=== PATIENT | male | born 1965 | race Caucasian/White ===

== ENCOUNTER 2017-04-27 23:16 | Emergency (ER) | payer MEDICARE ==
[2017-04-28] MEDS ORDERED: METOCLOPRAMIDE 5 MG/ML 2 ML VIAL IVP STA (00:24)
[2017-04-28] MEDS ORDERED: SODIUM CHLORIDE 0.9% 1,000 ML IV STA (00:24)
[2017-04-28] MEDS ORDERED: diphenhydrAMINE 50 MG/ML 1 ML VIAL IVP STA (00:24)
[2017-04-28] MEDS ORDERED: KETOROLAC 30 MG/ML 1 ML VIAL IVP STA (00:24)
[2017-04-28] MEDS ORDERED: ACETAMINOPHEN TAB 500 MG TAB PO STA (00:24)
--- NOTE | 2017-04-28 00:42 | ED ---
Headache HPI - General Chief Complaint: Headache Stated Complaint: Headache x 3 Time Seen by Provider: 04/27/17 23:59 Source: RN notes reviewed, old records reviewed Mode of arrival: wheelchair Limitations: no limitations - History of Present Illness Initial Comments: 51-year-old male with history of meningitis, strokes presents emergency Department chief complaint of a migraine-like headache for the past 4 days. He does have significant history of migraines. He reports his been many months he has had a migraine this bad for this long. He reports taking his at home pain medications and not getting any better. He reports the dizziness come to the ER to have his migraine pain management. Denies any falls or trauma to the head or neck. Denies any chills or fever, chest pain or shortness of breath. He reports that occasionally his vision below blurry but that is, his migraines. Patient states that he is currently followed by a neurologist in [place]. - Related Data Home Medications Medication Instructions Recorded Confirmed Clopidogrel [Plavix] 75 mg PO HS 11/05/14 11/02/15 Gabapentin [Neurontin] 300 mg PO QID 11/05/14 11/02/15 Divalproex [Depakote] 500 mg PO TID 01/02/15 11/02/15 HYDROcodone/APAP 7.5-325MG [[place] 1 tab PO DAILY 01/02/15 11/02/15 7.5-325] Meloxicam [Mobic] 7.5 mg PO DAILY 01/02/15 11/02/15 clonazePAM [KlonoPIN] 0.5 mg PO BID 01/02/15 11/02/15 Allergies Allergy/AdvReac Type Severity Reaction Status Date / Time No Known Allergies Allergy Verified 04/27/17 23:23 Review of Systems ROS Statement: Those systems with pertinent positive or pertinent negative responses have been documented in the HPI. ROS Other: All systems not noted in ROS Statement are negative. Past Medical History Past Medical History: CVA/TIA, Myocardial Infarction (NM) Additional Past Medical History / Comment(s): migraines. meningitis. History of Any Multi-Drug Resistant Organisms: None Reported Additional Past Surgical History / Comment(s): vasectomy Past Psychological History: No Psychological Hx Reported Smoking Status: Current every day smoker Past Alcohol Use History: None Reported Past Drug Use History: None Reported General Exam - General Exam Comments Initial Comments: 51-year-old male. Patient appears to be in minor discomfort. Limitations: no limitations General appearance: alert, in no apparent distress Head exam: Present: atraumatic, normocephalic, normal inspection Eye exam: Present: normal appearance, PERRL, EOMI. Absent: scleral icterus, conjunctival injection, periorbital swelling Neck exam: Present: normal inspection. Absent: tenderness, meningismus, lymphadenopathy Respiratory exam: Present: normal lung sounds bilaterally. Absent: respiratory distress, wheezes, rales, rhonchi, stridor Cardiovascular Exam: Present: regular rate, normal rhythm, normal heart sounds. Absent: systolic murmur, diastolic murmur, rubs, gallop, clicks GI/Abdominal exam: Present: soft, normal bowel sounds. Absent: distended, tenderness, guarding, rebound, rigid Extremities exam: Present: normal inspection, full ROM, normal capillary refill. Absent: tenderness, pedal edema, joint swelling, calf tenderness Back exam: Present: normal inspection Neurological exam: Present: alert, oriented X3, CN II-XII intact Psychiatric exam: Present: normal affect, normal mood Skin exam: Present: warm, dry, intact, normal color. Absent: rash Course Vital Signs 04/27/17 04/28/17 04/28/17 23:20 00:46 02:46 Temperature 98.2 F 97 F L Pulse Rate 72 65 62 Respiratory 16 20 18 Rate Blood Pressure 119/78 127/81 113/62 O2 Sat by Pulse 97 98 97 Oximetry Medical Decision Making - Medical Decision Making 51-year-old male with history of strokes, meningitis presents emergency department with four days of headache. He has a true migraines as well. This is typical migraine. He's at home he wants and with no relief. At this time patient , CT brain is negative. He was given initial migraine cocktail. He reports pain continue to persist. And given IV pain medication. He Feels better this time. He said request PO dilaudid to go home. I discussed I do not feel comfortable writing a prescription. He filed with his neurologist for their pain management. Patient agrees to treatment plan and will comply. Return parameters disucssed. - Radiology Data Radiology results: report reviewed CT brain is negative for making process. Disposition Clinical Impression: Headache Disposition: HOME SELF-CARE Condition: Good Instructions: Acute Headache (ED) Additional Instructions: Follow up with your neurologist or primary care provider regards to pain management and further headaches. Patient should return to emergency department if any alarming signs or symptoms occur. Referrals: Nonstaff,Physician [Primary Care Provider] - 1-2 days Rosaura Paredes MD [STAFF PHYSICIAN] - 1-2 days Time of Disposition: 02:35
--- NOTE | 2017-04-28 01:11 | CT ---
EXAMINATION TYPE: CT brain wo con DATE OF EXAM: 04/28/2017 COMPARISON: 11/02/2015 HISTORY: Prior on synapse 2016, MORATAYA for 3 days, history of CVA and migraine CT DLP: 1012.70 mGycm Automated exposure control for dose reduction was used. FINDINGS: Ventricles have fairly normal size. There is no mass effect nor midline shift. There is no sign of in tracranial hemorrhage. The calvarium is intact. IMPRESSION: NEGATIVE CT SCAN OF THE BRAIN. NO CHANGE.
[2017-04-28] MEDS ORDERED: HYDROmorphone 1 MG/ML 1 ML SYRINGE IVP STA (01:36)
[2017-04-28] MEDS ORDERED: HYDROmorphone 2 MG/ML 1 ML SYRINGE IVP STA (01:39)
[2017-04-28 02:48] VITALS: BP 113/62; PULSE 62; RESP 18; TEMP 97
== END 2017-04-28 02:46 | disposition home or self-care (01) ==
LOC: EC 23:16
DX: R51 Headache (principal); I25.2 Old myocardial infarction; F17.200 Nicotine dependence, unspecified, uncomplicated; Z86.73 Personal history of transient ischemic attack (TIA), and cerebral infarction without residual deficits; Z86.61 Personal history of infections of the central nervous system; Z86.69 Personal history of other diseases of the nervous system and sense organs; Z79.02 Long term (current) use of antithrombotics/antiplatelets; Z79.1 Long term (current) use of non-steroidal anti-inflammatories (NSAID); Z79.899 Other long term (current) drug therapy
CPT/HCPCS: 70450; 99284; 96374; 96375 ×3; 96361; J1170; J1200; J2765; J1885